=== PATIENT | male | born 1955 | race Caucasian/White ===

== ENCOUNTER 2017-09-08 08:49 | Outpatient (CLI) | payer OTHER ==
[2017-09-08 10:16] LABS: #Eosinphils 0.2 thou/uL (0.0-0.7); #Lymphocytes 1.4 thou/uL (1.20-3.40); #Monocytes 0.4 thou/uL (0.11-0.59); #Neutrophils 3.4 thou/uL (1.40-6.50); %Basophils 0.9 % (0.0-1.0); %Eosinophils 3.4 % (0.0-10.0); %Lymphocytes 25.3 % (21.0-51.0); %Monocytes 6.6 % (0.0-10.0); %Neutrophils 63.7 % (42.0-75.0); Hemoglobin 13.6 g/dL (14.0-18.0); Mean Corpuscular HGB CONC 33.3 g/dL (32.0-36.0); Mean Corpuscular Hemoglobin 31.3 pg (27.0-31.0); Mean Corpuscular Volume 93.8 fl (80.0-94.0); Mean Platelet Volume 8.5 fL (7.4-10.4); Platelet Count 148 thou/uL (130-400); RBC Distribution Width 11.8 % (11.5-14.5); Red Blood Cell (RBC) Count 4.36 mill/uL (4.70-6.10); White Blood Cell (WBC) Count 5.3 thou/uL (4.8-10.8)
[2017-09-08 10:36] LABS: Anion Gap 10 mmol/L (10-20); BUN (Urea Nitrogen) 12 mg/dL (8.4-25.7); Calc. Creatinine Clearance 0 mL/min (70-130); Carbon Dioxide 26 mmol/L (23-31); Chloride 107 mmol/L (98-107); Estimated GFR-MDRD Greater than 90; Glucose 101 mg/dL (80-115); Sodium 139 mmol/L (136-145)
--- NOTE | 2017-09-13 20:10 | EKG ---
Test Reason : Blood Pressure : / mmHG Vent. Rate : 056 BPM Atrial Rate : 063 BPM P-R Int : 182 ms QRS Dur : 102 ms QT Int : 438 ms P-R-T Axes : 053 005 040 degrees QTc Int : 422 ms Sinus rhythm with Premature atrial complexes Moderate voltage criteria for LVH, may be normal variant Nonspecific ST and T wave abnormality Abnormal ECG No previous ECGs available Confirmed by AMAN JOHNS (2) on 09/13/2017 8:09:53 PM Referred By: LAVINIA Confirmed By:AMAN JOHNS
== END 2017-09-08 08:50 | disposition home or self-care (01) ==
LOC: LABBT 08:49
PROVIDERS: ATTEND Surgery
DX: Z01.818 Encounter for other preprocedural examination (principal); K40.90 Unilateral inguinal hernia, without obstruction or gangrene, not specified as recurrent; K42.9 Umbilical hernia without obstruction or gangrene
CPT/HCPCS: 80048; 85025; 93005; 93010

== ENCOUNTER 2017-09-16 10:06 | Day surgery (SDC) | payer OTHER ==
[2017-09-08 09:20] VITALS: BMI 26.8
[2017-09-16] MEDS ORDERED: Bupivacaine/Epinephrine 0.25% 30 ML VIAL ONE (10:39)
[2017-09-16] MEDS ORDERED: CEFAZOLIN/Water 2 GM/20 ML SYRINGE ONE (11:07)
[2017-09-16] MEDS ORDERED: Midazolam HCl 2 mg/2 ml Vial ONE ×2 (12:38→12:42)
[2017-09-16] MEDS ORDERED: Fentanyl 250 MCG/5 ML VIAL ONE (12:38)
[2017-09-16] MEDS ORDERED: Fentanyl 100 MCG/2 ML VIAL ONE (14:49)
[2017-09-16] MEDS ORDERED: traMADol HCl 50 MG TAB ONE (15:41)
--- NOTE | 2017-09-16 17:42 | OP ---
DATE OF PROCEDURE: 09/16/2017 PREOPERATIVE DIAGNOSES: Right inguinal hernia and umbilical hernia. POSTOPERATIVE DIAGNOSES: Right inguinal hernia and umbilical hernia. PROCEDURES PERFORMED: 1. Laparoscopic da Siomara right inguinal hernia repair with mesh, 3DMax large. 2. Umbilical hernia repair with mesh, Covidien umbilical hernia mesh, 4 cm. SURGEON: Tamir Park M.D. ANESTHESIA: General. ESTIMATED BLOOD LOSS: Minimal. COMPLICATIONS: None. SPECIMEN: None. FINDINGS: Right inguinal hernia, umbilical hernia. TECHNIQUE: The patient was taken to the operating room and placed supine on the table. After genera l anesthetic was obtained, a Coughlin was placed. The abdomen was shaved, prepped and draped in a steri le fashion. Curved incision made above the umbilicus. Cautery was used to dissect down to and score the fascia. Umbilical stalk was amputated exposing the umbilical defect. The 12-mm Ethicon trocar was placed directly through the defect. High-flow pneumoperitoneum was obtained. Left and right abd ominal robot 8 mm trocars are placed. All ports were docked to the robot. The peritoneum was taken down in the right lower quadrant and the preperitoneal space was fully dissected to the iliopectineal line, pubic tubercle, all the way out laterally towards the anterior superior iliac crest. The umbi lical hernia sac is fully dissected and the cord structures skeletonized and the hernia sac dissected high up onto the peritoneum. A 3DMax large mesh brought into the sterile field, the end-labeled med ial aspect was placed over pubic tubercle medially. The mesh was laid out to cover the indirect, dir ect and femoral areas. The mesh was sewn to pubic tubercle medially and to the posterior fascia late rally using 2-0 Vicryl suture. The peritoneum was reapproximated using 3-0 Stratafix. All port site s were infiltrated using local anesthetic. All ports were removed under camera visualization without bleeding. Pneumoperitoneum was let down. The 4-cm umbilical hernia mesh by Covidien was brought in to the sterile field and placed into the fascial defect. The tails of the mesh were sewn via U stitc h of permanent braided suture to the edges. The fascia was closed loosely over the mesh using perman ent braided suture. The wound was irrigated. Local anesthetic was applied. The umbilical stalk was tacked down using 3-0 Vicryl. All incisions were closed using 4-0 Monocryl and Dermabond. The torsten ent was en route to recovery in stable condition. All instrument counts, needle counts, lap counts w ere correct.
== END 2017-09-16 16:40 | disposition home or self-care (01) ==
LOC: SDC 10:06
PROVIDERS: ATTEND Surgery
PROC: 0YU54JZ Supplement Right Inguinal Region with Synthetic Substitute, Percutaneous Endoscopic Approach (ICD-10-PCS; principal; 2017-09-16)
PROC: 0WUF0JZ Supplement Abdominal Wall with Synthetic Substitute, Open Approach (ICD-10-PCS; principal; 2017-09-16)
DX: K40.90 Unilateral inguinal hernia, without obstruction or gangrene, not specified as recurrent (principal); K42.9 Umbilical hernia without obstruction or gangrene; Z79.899 Other long term (current) drug therapy
CPT/HCPCS: 96374; C1781; J2250; J3010